=== PATIENT | female | born 1960 | race Caucasian/White ===

== ENCOUNTER 2021-12-15 03:51 | Emergency (ER) | payer OTHER | END 2021-12-15 06:00 | disposition home or self-care (01) | LOC: FER 03:51 | DX: S63.616A Unspecified sprain of right little finger, initial encounter (principal); S60.221A Contusion of right hand, initial encounter; M25.531 Pain in right wrist; W23.0XXA Caught, crushed, jammed, or pinched between moving objects, initial encounter; Y92.89 Other specified places as the place of occurrence of the external cause; Y99.0 Civilian activity done for income or pay; Z28.311 Partially vaccinated for COVID-19 | CPT/HCPCS: 73130 ==